=== PATIENT | male | born 1980 | race Caucasian/White ===

== ENCOUNTER 2017-05-06 15:57 | Emergency (ER) ==
[2017-05-06 16:01] VITALS: BP 161/101; TEMP 99.3; BMI 38.0
--- NOTE | 2017-05-06 16:31 | ED.PDOC ---
General ED Provider: Dr. DARRIAN GONZALEZ Chief Complaint: Abscess Stated Complaint: abscess face Time Seen by Physician: 16:00 Mode of Arrival: Walk-In Information Source: Patient Exam Limitations: No limitations Primary Care Provider: HELENE MCNALLY Nursing and Triage Documentation Reviewed and Agree: Yes (see photos) Skin Complaint Exam - Skin/Soft Tissue Complaint/Exam Onset/Duration: 1 week Symptoms Are: Still present Timing: Constant Initial Severity: Mild Current Severity: Mild Character: Reports: Swelling, Raised, Painful Aggravating: Reports: Touch Alleviating: Reports: None Associated Signs and Symptoms: Denies: Fever, Chills, Itching, Drainage, Bruising, Tenderness, Red streaks, Joint swelling Related History: Reports: Similar episode Related Surgical History: Reports: None Recent Exposure to Others w/Similar Symptoms: No Skin Findings: Present: Pustules Differential Diagnoses: Abscess, MRSA Review of Systems - Review Of Systems Constitutional: Reports: No symptoms Eyes: Reports: No symptoms Ears, Nose, Mouth, Throat: Reports: No symptoms Respiratory: Reports: No symptoms Cardiac: Reports: No symptoms GI: Reports: No symptoms : Reports: No symptoms Musculoskeletal: Reports: No symptoms Skin: Reports: Other (abscess see photos) Neurological: Reports: No symptoms Endocrine: Reports: No symptoms Hematologic/Lymphatic: Reports: No symptoms All Other Systems: Reviewed and Negative Past Medical History - Past Medical History Previously Healthy: Yes Endocrine: Reports: None Cardiovascular: Reports: None Respiratory: Reports: None Hematological: Reports: None Gastrointestinal: Reports: None Genitourinary: Reports: None Neuro/Psych: Reports: Anxiety, Depression Musculoskeletal: Reports: None Cancer: Reports: None - Surgical History General Surgical History: Reports: Unknown - Family History Family History: Reports: Unknown - Social History Smoking Status: Current some day smoker Hx Substance Use: Yes ([facility]) Alcohol Screening: None Physical Exam - Physical Exam Appearance: Well-appearing, No pain distress, Well-nourished Eyes: AZAEL, EOMI, Conjunctiva clear ENT: Ears normal, Nose normal, Oropharynx normal Respiratory: Airway patent, Breath sounds clear, Breath sounds equal, Respirations nonlabored Cardiovascular: RRR, Pulses normal, No rub, No murmur GI/: Soft, Nontender, No masses, Bowel sounds normal, No Organomegaly Musculoskeletal: Normal strength, ROM intact, No edema, No calf tenderness Skin: Warm, Dry (abscess 2cm on the left face see photos) Neurological: Sensation intact, Motor intact, Reflexes intact, Cranial nerves intact, Alert, Oriented Psychiatric: Affect appropriate, Mood appropriate Critical Care Note - Critical Care Note Total Time (mins): 0 Course - Course Vital Signs: Temp Pulse Resp BP Pulse Ox 05/06/17 15:59 99.3 F 120 H 16 161/101 H 95 Departure - Departure Time of Disposition: 16:31 (see photos, may was present during discharge inst ) Disposition: HOME SELF-CARE Discharge Problem: Abscess Instructions: Abscess (ED) Condition: Good Pt referred to PMD for follow-up: Yes Additional Instructions: Please call your Family Physician as soon as possible to schedule a follow-up appointment. Allergies/Adverse Reactions: Allergies No Known Allergies Allergy (Verified 01/31/16 19:22) Home Medications: Ambulatory Orders Gabapentin 900 mg PO DAILY 01/29/16 Venlafaxine HCl [Effexor] 150 mg PO DAILY 01/29/16 Disposition Discussed With: Patient
== END 2017-05-06 16:56 | disposition home or self-care (01) ==
LOC: ED 15:57
DX: L02.01 Cutaneous abscess of face (principal); F17.210 Nicotine dependence, cigarettes, uncomplicated
CPT/HCPCS: 99282

== ENCOUNTER 2017-06-07 10:34 | Emergency (ER) ==
[2017-06-07 10:38] VITALS: BP 171/107; TEMP 97.4; BMI 38.6
[2017-06-07 11:02] LABS: BASOPHILS % (AUTO) 0.4 % (0.0-3.0); EOSINOPHILS # (AUTO) 0.2 K/ul (0.0-0.7); EOSINOPHILS % (AUTO) 2.5 % (0.0-7.0); HEMATOCRIT 43.4 % (42.0-52.0); IMMATURE GRANULOCYTE % (AUTO) 0.3 % (0.0-5.0); LYMPHOCYTES # (AUTO) 3.7 K/uL (0.60-3.4); LYMPHOCYTES % (AUTO) 38.2 (10.0-50.0); MEAN CORPUSCULAR HGB CONC 34.6 (31.8-35.4); MEAN CORPUSCULAR VOLUME 83.9 fl (80.0-94.0); MONOCYTES # (AUTO) 0.6 K/uL (0.4-2.0); MONOCYTES % (AUTO) 6.5 (0-10); NEUTROPHILS % (AUTO) 52.1; PLATELET COUNT 310 10^3/uL (140-440); RED BLOOD COUNT 5.17 10^6/ul (4.70-6.10)
[2017-06-07 11:20] LABS: ALBUMIN 3.7 g/dL (3.4-5.0); ALBUMIN/GLOBULIN RATIO 0.95; ANION GAP 14.9; BILIRUBIN,TOTAL 0.22 mg/dL (0.00-1.20); BUN/CREATININE RATIO 11.3; CALCIUM 9.2 mg/dL (8.2-10.2); CREATININE 1.15 mg/dL (0.60-1.10); POTASSIUM 3.9 mmol/L (3.5-5.1); TOTAL PROTEIN 7.6 g/dL (6.4-8.2)
--- NOTE | 2017-06-07 11:30 | CT ---
EXAM: CT Abdomen without contrast. CT Pelvis without contrast. HISTORY: Abdominal pain. Low back pain. Crohn disease. COMPARISON: None available. TECHNIQUE: Multiple axial images of the abdomen and pelvis were obtained without intravenous contras t. Images were reformatted in the coronal plane. FINDINGS: Please note that evaluation of the abdominal and pelvic structures is limited due to lack of intravenous contrast. No acute abnormality identified in the lung bases. Degenerative changes present in the spine. The liver, gallbladder, pancreas, spleen, and adrenal glands demonstrate normal contour. No calcifie d renal stones or hydronephrosis detected. No ureteral or bladder calculi are seen. The bowel is normal in course and caliber without evidence for obstruction or inflammatory process. The appendix is normal. Tiny fat-containing umbilical hernia noted. No free fluid or free air ident ified. IMPRESSION: No acute abnormality within the abdomen or pelvis.
[2017-06-07] MEDS ORDERED: NORCO 10-325 PO STA (11:33)
[2017-06-07 12:19] LABS: ADD URINE MICROSCOPIC NO; BILIRUBIN,URINE Negative (NEGATIVE); KETONES,URINE Negative (NEGATIVE); LEUKOCYTE ESTERASE ,URINE Negative (NEGATIVE); NITRITE,URINE Negative (NEGATIVE); PH,URINE 5.5 (5-9); PROTEIN,URINE Negative (NEGATIVE); URINE, BLOOD Negative (NEGATIVE)
--- NOTE | 2017-06-07 12:29 | CT ---
EXAM: CT lumbar spine without contrast HISTORY: Pain COMPARISON: MRI 05/28/2016 TECHNIQUE: CT lumbar spine performed without intravenous contrast. Coronal and sagittal reformatted images obtained. FINDINGS: Vertebral bodies normal height. No fracture. No subluxation. Mild intervertebral disc s pace narrowing L4-L5 with associated endplate degenerative change. Sacroiliac joints intact. No par avertebral soft tissue abnormality. T12-L1: No central canal or neural foraminal narrowing. L1-L2: No central canal or neural foraminal narrowing. L2-L3: No central canal or neural foraminal narrowing. L3-L4: Posterior disc osteophyte complex and facet arthrosis causing mild central canal and mild alethea ateral neural foraminal narrowing. L4-L5: Right hemilaminectomy. Posterior disc osteophyte complex and facet arthrosis causing mild ce ntral canal and moderate bilateral neural foraminal narrowing. L5-S1: Posterior disc osteophyte complex and facet arthrosis causing mild to moderate bilateral neur al foraminal narrowing. IMPRESSION: 1. No fracture or subluxation. 2. Chronic discogenic degenerative disease and facet arthrosis. Please see segmental analysis, noti ng central canal and neural foraminal narrowing
--- NOTE | 2017-06-07 12:42 | ED.PDOC ---
General ED Provider: Dr. DARRIAN GONZALEZ Chief Complaint: Back Pain Stated Complaint: LOW BACK PAIN Time Seen by Physician: 10:40 (PAIN AFTER LIFTING A CHAIR) Mode of Arrival: Walk-In Information Source: Patient Exam Limitations: No limitations Primary Care Provider: HELENE MCNALLY Nursing and Triage Documentation Reviewed and Agree: Yes Musculoskeletal Complaint Exam - Back Pain Complaint/Exam Mechanism of Injury: Reports: No known trauma Onset/Duration: 1 DAY Symptoms Are: Still present Timing: Constant Episodes Lasting: Hours Initial Severity: Moderate Current Severity: Moderate Location: Reports: Discrete Character: Reports: Spasmodic, Stiffness Aggravating: Reports: Movements, Lifting, Bending, Walking Alleviating: Reports: Rest, Position Associated Signs and Symptoms: Denies: Swelling, Redness, Bruising, Fever, Weakness, Numbness, Tingling, Abdominal pain, Flank pain, Bladder incontinence, Bowel incontinence, Weight loss, Pain with weight bearing Related History: Reports: Similar episode TAD Risk Factors: Reports: None Cauda Equina Risk Factors: Reports: None Epidural Abcess Risk Factors: Reports: None Related Surgical History: Reports: None Focal Tenderness: No Paraspinal Muscle Tenderness: No Paraspinal Muscle Spasm: No Scoliosis: No Lordosis: No Kyphosis: No SLR Test: Right Negative, Left Negative Hip Motion Testing Pain: Right Negative, Left Negative Focal Weakness: Present: None Focal Sensory Loss: Present: None Gait: Present: Normal Differential Diagnoses: Strain, Sprain Review of Systems - Review Of Systems Constitutional: Reports: No symptoms Eyes: Reports: No symptoms Ears, Nose, Mouth, Throat: Reports: No symptoms Respiratory: Reports: No symptoms Cardiac: Reports: No symptoms GI: Reports: Abdominal pain : Reports: No symptoms Musculoskeletal: Reports: Back pain Skin: Reports: No symptoms Neurological: Reports: No symptoms Endocrine: Reports: No symptoms Hematologic/Lymphatic: Reports: No symptoms All Other Systems: Reviewed and Negative Past Medical History - Past Medical History Previously Healthy: Yes Endocrine: Reports: None Cardiovascular: Reports: None Respiratory: Reports: None Hematological: Reports: None Gastrointestinal: Reports: None Genitourinary: Reports: None Neuro/Psych: Reports: Anxiety, Depression Musculoskeletal: Reports: None Cancer: Reports: None - Surgical History General Surgical History: Reports: Unknown - Family History Family History: Reports: Unknown - Social History Smoking Status: Current some day smoker Hx Substance Use: Yes ([place]) Alcohol Screening: None Physical Exam - Physical Exam Appearance: Well-appearing, No pain distress, Well-nourished Eyes: AZAEL, EOMI, Conjunctiva clear ENT: Ears normal, Nose normal, Oropharynx normal Respiratory: Airway patent, Breath sounds clear, Breath sounds equal, Respirations nonlabored Cardiovascular: RRR, Pulses normal, No rub, No murmur GI/: Soft, Nontender, No masses, Bowel sounds normal, No Organomegaly Musculoskeletal: Normal strength, ROM intact, No edema, No calf tenderness Skin: Warm, Dry, Normal color Neurological: Sensation intact, Motor intact, Reflexes intact, Cranial nerves intact, Alert, Oriented Psychiatric: Affect appropriate, Mood appropriate Critical Care Note - Critical Care Note Total Time (mins): 0 Course - Course Hematology/Chemistry: 06/07/17 10:55 06/07/17 10:55 Orders, Labs, Meds: Lab Review 06/07/17 06/07/17 12 10:55 10:55 11:24 WBC 9.60 RBC 5.17 Hgb 15.0 Hct 43.4 MCV 83.9 MCH 29.0 MCHC 34.6 RDW Coeff of Teresa 13.3 Plt Count 310 Immature Gran % (Auto) 0.3 Neut % (Auto) 52.1 Lymph % (Auto) 38.2 Casey % (Auto) 6.5 Eos % (Auto) 2.5 Baso % (Auto) 0.4 Immature Gran # (Auto) 0.0 Neut # 5.0 Lymph # 3.7 H Casey # 0.6 Eos # 0.2 Baso # 0.0 Sodium 139 Potassium 3.9 Chloride 106 Carbon Dioxide 22 Anion Gap 14.9 BUN 13 Creatinine 1.15 H Estimated GFR (MDRD) 72.00 BUN/Creatinine Ratio 11.30 Glucose 84 Calcium 9.2 Total Bilirubin 0.22 AST 21 ALT 35 Alkaline Phosphatase 91 Total Protein 7.6 Albumin 3.7 Globulin 3.9 Albumin/Globulin Ratio 0.95 Amylase 31 Lipase 23 Urine Color Yellow Urine Clarity Clear Urine pH 5.5 Ur Specific [place] <=1.005 Urine Protein Negative Urine Glucose (UA) Negative Urine Ketones Negative Urine Blood Negative Urine Nitrite Negative Urine Bilirubin Negative Urine Urobilinogen 0.2 Ur Leukocyte Esterase Negative Orders Category Date Time Status AMYLASE Stat LAB 06/07/17 10:55 Completed CBC W/ AUTO DIFF Stat LAB 06/07/17 10:55 Completed COMPREHENSIVE METABOLIC PANEL Stat LAB 06/07/17 10:55 Completed LIPASE Stat LAB 06/07/17 10:55 Completed URINALYSIS C & S IF INDICATED Stat LAB 06/07/17 11:24 Completed Hydrocodone Bit/Acetaminophen [[place] 10-325] MEDS 06/07/17 11:33 Discontinued 1 tab PO ONCE STA CT ABDOMEN/PELVIS WO CONTRAST Stat RADS 06/07/17 10:[address] LUMBAR SPINE W/O CONTRAST Stat RADS 06/07/17 11:34 Completed Medications Discontinued Medications Generic Name Dose Route Start Last Admin Trade Name Dustin PRN Reason Stop Dose Admin Acetaminophen/Hydrocodone Bitart 1 tab 06/07/17 11:33 06/07/17 11:46 [place] 10-325 PO 06/07/17 11:34 1 tab ONCE STA Administration Vital Signs: Temp Pulse Resp BP Pulse Ox 06/07/17 10:34 97.4 F L 98 H 18 171/107 H 96 Departure - Departure Time of Disposition: 12:41 (DISCHARGE INSTRUCTION GIVEN WITH CHRIS AT BEDSIDE ) Disposition: HOME SELF-CARE Discharge Problem: Low back pain Qualifiers: Chronicity: unspecified Back pain laterality: unspecified Sciatica presence: without sciatica Qualified Code(s): M54.5 - Low back pain Instructions: Flank Pain (ED), Chronic Back Pain (ED), Acute Low Back Pain (ED) Condition: Good Pt referred to PMD for follow-up: Yes Additional Instructions: Please call your Family Physician as soon as possible to schedule a follow-up appointment. Prescriptions: Hydrocodone/Acetaminophen [[place] 10-325 Tablet] 1 each PO Q8HR #10 tablet Allergies/Adverse Reactions: Allergies No Known Allergies Allergy (Verified 06/07/17 10:38) Home Medications: Ambulatory Orders Hydrocodone/Acetaminophen [[place] 10-325 Tablet] 1 each PO Q8HR #10 tablet
== END 2017-06-07 12:48 | disposition home or self-care (01) ==
LOC: ED 10:34
DX: M54.5 Low back pain (principal); X50.0XXA Overexertion from strenuous movement or load, initial encounter; F17.210 Nicotine dependence, cigarettes, uncomplicated
CPT/HCPCS: 36415; 80053; 81001; 82150; 83690; 85025; 99283

== ENCOUNTER 2017-06-17 15:49 | Emergency (ER) ==
[2017-06-17 15:50] VITALS: BMI 38.6
[2017-06-17 16:03] VITALS: BP 142/88; TEMP 99.8
--- NOTE | 2017-06-17 16:11 | ED.PDOC ---
General ED Provider: Dr. EMIR GARCÍA-ER Chief Complaint: Back Pain Stated Complaint: i ran out of my percocet--will see me doc in 2 days Time Seen by Physician: 16:09 Mode of Arrival: Walk-In Information Source: Patient Exam Limitations: No limitations Primary Care Provider: HELENE MCNALLY Nursing and Triage Documentation Reviewed and Agree: Yes Reviewed sepsis parameters & appropriate labs ordered?: Yes System Inflammatory Response Syndrome: Not Applicable Sepsis Protocol: For patient's 13 years and over: Temp is 96.8 and below OR 101 and greater Pulse >90 BPM Resp >20/minute Acutely Altered Mental Status Are patient's symptoms suggestive of a new infection, such as: -Pneumonia -Skin, Soft Tissue -Endocarditis -UTI -Bone, Joint Infection -Implantable Device -Acute Abdominal Infection -Wound Infection -Meningitis -Blood Stream Catheter Infection -Unknown Musculoskeletal Complaint Exam - Back Pain Complaint/Exam Mechanism of Injury: Reports: No known trauma Onset/Duration: several days Symptoms Are: Still present Timing: Constant Initial Severity: Mild Current Severity: Moderate Location: Reports: Discrete Character: Reports: Dull, Aching, Spasmodic, Stiffness Aggravating: Reports: Movements, Lifting, Bending, Walking Alleviating: Reports: None Associated Signs and Symptoms: Denies: Swelling, Redness, Bruising, Fever, Weakness, Numbness, Tingling, Abdominal pain, Flank pain, Bladder incontinence, Bowel incontinence, Weight loss, Pain with weight bearing Related History: Reports: Previous back injury Cauda Equina Risk Factors: Reports: None Epidural Abcess Risk Factors: Reports: None Related Surgical History: Reports: Back Surgery, Fusion Focal Tenderness: Yes Paraspinal Muscle Tenderness: Yes Paraspinal Muscle Spasm: No Scoliosis: No Lordosis: No Kyphosis: No SLR Test: Right Negative, Left Negative Hip Motion Testing Pain: Right Negative, Left Negative Focal Weakness: Present: None Focal Sensory Loss: Present: None Gait: Present: Abnormal Differential Diagnoses: Herniated Disk, Strain, Sprain Review of Systems - Review Of Systems Constitutional: Reports: No symptoms Eyes: Reports: No symptoms Ears, Nose, Mouth, Throat: Reports: No symptoms Respiratory: Reports: No symptoms Cardiac: Reports: No symptoms GI: Reports: No symptoms : Reports: No symptoms Musculoskeletal: Reports: Back pain, Muscle pain Skin: Reports: No symptoms Neurological: Reports: No symptoms Endocrine: Reports: No symptoms Hematologic/Lymphatic: Reports: No symptoms All Other Systems: Reviewed and Negative Past Medical History - Past Medical History Previously Healthy: Yes Endocrine: Reports: None Cardiovascular: Reports: None Respiratory: Reports: None Hematological: Reports: None Gastrointestinal: Reports: None Genitourinary: Reports: None Neuro/Psych: Reports: Anxiety, Depression Musculoskeletal: Reports: None Cancer: Reports: None - Surgical History General Surgical History: Reports: Unknown - Family History Family History: Reports: Unknown - Social History Smoking Status: Current some day smoker Hx Substance Use: Yes ([facility]) Alcohol Screening: None Lives: With family Physical Exam - Physical Exam Appearance: Well-appearing, No pain distress, Well-nourished Pain Distress: Moderate Eyes: AZAEL, EOMI, Conjunctiva clear ENT: Ears normal, Nose normal, Oropharynx normal Neck: Supple Respiratory: Airway patent, Breath sounds clear, Breath sounds equal, Respirations nonlabored Cardiovascular: RRR, Pulses normal, No rub, No murmur GI/: Soft Musculoskeletal: Limited ROM Skin: Warm, Dry, Normal color Neurological: Sensation intact, Motor intact, Reflexes intact, Cranial nerves intact, Alert, Oriented Psychiatric: Affect appropriate, Mood appropriate Critical Care Note - Critical Care Note Total Time (mins): 0 Course - Course Vital Signs: Temp Pulse Resp BP Pulse Ox 06/17/17 15:50 99.8 F H 107 H 20 142/88 H 95 Departure - Departure Time of Disposition: 16:11 Disposition: HOME SELF-CARE Discharge Problem: Backache Instructions: Low Back Strain (ED) Condition: Good Pt referred to PMD for follow-up: Yes Additional Instructions: percocet 7.5 q 4hrs prn pain #12--keep f/u with surgeon Allergies/Adverse Reactions: Allergies No Known Allergies Allergy (Verified 06/07/17 10:38) Home Medications: Ambulatory Orders Diazepam [Valium] 5 mg PO Q8HR PRN 06/17/17 Oxycodone HCl/Acetaminophen [Oxycodon-Acetaminophen 7.5-325] 1 - 2 each PO Q4HR PRN 06/17/17 Disposition Discussed With: Patient
== END 2017-06-17 16:21 | disposition home or self-care (01) ==
LOC: ED 15:49
DX: M54.9 Dorsalgia, unspecified (principal); F17.210 Nicotine dependence, cigarettes, uncomplicated
CPT/HCPCS: 99283

== ENCOUNTER 2017-12-10 07:09 | Emergency (ER) ==
[2017-12-10 07:15] VITALS: BP 140/87; TEMP 97.9; BMI 33.2
--- NOTE | 2017-12-10 07:52 | ED.PDOC ---
General ED Provider: Dr. EMIR GREEN Chief Complaint: Eye Problem Stated Complaint: Lt Eye Pain, drainage. Awakened yesterday with swelling of lt eye and discharge(yellow). Increased mattering of the eyelids, swelling and discomfort this morning. Is supposed to work this morning. 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[employer]) Time Seen by Physician: 07:40 Mode of Arrival: Walk-In Information Source: Patient Exam Limitations: No limitations Primary Care Provider: HELENE IL Nursing and Triage Documentation Reviewed and Agree: Yes Reviewed sepsis parameters & appropriate labs ordered?: Yes System Inflammatory Response Syndrome: Not Applicable Sepsis Protocol: For patient's 13 years and over: Temp is 96.8 and below OR 101 and greater Pulse >90 BPM Resp >20/minute Acutely Altered Mental Status Are patient's symptoms suggestive of a new infection, such as: -Pneumonia -Skin, Soft Tissue -Endocarditis -UTI -Bone, Joint Infection -Implantable Device -Acute Abdominal Infection -Wound Infection -Meningitis -Blood Stream Catheter Infection -Unknown EENT Complaint Exam - Eye Complaint/Exam Onset/Duration: 12/09/2017 Symptoms Are: Still present Timing: Constant Initial Severity: Moderate Current Severity: Severe Location: Left Character: Reports: Dull Aggravating: Reports: Light Alleviating: Reports: None Associated Signs and Symptoms: Reports: Photophobia, Purulent drainage, Swelling. Denies: Fever Related History: Denies: Similar episode Eye Surgical History: Reports: None Penetrating Injury Risk Factors: None Globe Rupture Risk Factors: None Acute Glaucoma Risk Factors: None Optic Artery Occlusion Risk Factors: None Extraocular Movement: Normal Orbit Findings: Normal Globe Findings: Intact Lid Findings: Erythema Conjunctival Findings: Red Fundi: Normal Review of Systems - Review Of Systems Constitutional: Reports: No symptoms Eyes: Reports: No symptoms, Foreign body sensation, Inflammation, Photophobia Ears, Nose, Mouth, Throat: Reports: No symptoms Respiratory: Reports: No symptoms Cardiac: Reports: No symptoms GI: Reports: No symptoms : Reports: No symptoms Musculoskeletal: Reports: No symptoms Skin: Reports: No symptoms Neurological: Reports: No symptoms Endocrine: Reports: No symptoms Hematologic/Lymphatic: Reports: No symptoms All Other Systems: Reviewed and Negative Past Medical History - Past Medical History Previously Healthy: Yes Endocrine: Reports: None Cardiovascular: Reports: None Respiratory: Reports: None Hematological: Reports: None Gastrointestinal: Reports: None Genitourinary: Reports: None Neuro/Psych: Reports: Anxiety, Depression Musculoskeletal: Reports: None, Back Pain Cancer: Reports: None - Surgical History General Surgical History: Reports: Unknown - Family History Family History: Reports: Unknown - Social History Smoking Status: Current some day smoker Hx Substance Use: No Alcohol Screening: None - Immunizations Tetanus Shot up to Date: Yes Physical Exam - Physical Exam Appearance: Well-appearing Ill-appearing: None Pain Distress: Mild Eyes: AZAEL, EOMI, Conjunctiva inflammed (Prulent discharge. ;No ulcers noted to exam) ENT: Ears normal, Nose normal, Oropharynx normal Neck: Supple Respiratory: Airway patent, Breath sounds clear, Breath sounds equal, Respirations nonlabored Cardiovascular: RRR, Pulses normal, No rub, No murmur GI/: Soft, Nontender, No masses, Bowel sounds normal, No Organomegaly Musculoskeletal: Normal strength, ROM intact, No edema, No calf tenderness Skin: Warm, Dry, Normal color Neurological: Sensation intact Psychiatric: Affect appropriate Critical Care Note - Critical Care Note Total Time (mins): 0 Course - Course Vital Signs: Temp Pulse Resp BP Pulse Ox 12/10/17 07:11 97.9 F 80 16 140/87 95 Departure - Departure Time of Disposition: 08:30 Disposition: HOME SELF-CARE Discharge Problem: Conjunctivitis Instructions: Conjunctivitis (ED) Condition: Good Pt referred to PMD for follow-up: Yes (Dr Callahan 1 wk) IPMP verified?: No Additional Instructions: Use Tobramycin OP 2 drops lt eye as directed every 1-2 hrs then after 24 hours 2 drops lt eye q 2-4 hrs or 4 times daily for 5 days Keep drainage clear of eye as directed. Follow up [employer] in 2-4 days if no improvement or return to ER if worsens Good hand hygeine Allergies/Adverse Reactions: Allergies No Known Allergies Allergy (Verified 12/10/17 07:10) Home Medications: Ambulatory Orders 1 [No Reported Medications] 12/10/17 Disposition Discussed With: Patient
[2017-12-10] MEDS ORDERED: FLUORETS OP STA (07:58)
[2017-12-10] MEDS ORDERED: TOBREX 0.3% OP STA (08:02)
[2017-12-10] MEDS ORDERED: EYE-STREAM OP STA (08:35)
== END 2017-12-10 08:39 | disposition home or self-care (01) ==
LOC: ED 07:09
DX: H10.9 Unspecified conjunctivitis (principal); F17.210 Nicotine dependence, cigarettes, uncomplicated
CPT/HCPCS: 87070; 87186; 99282

== ENCOUNTER 2018-12-02 12:37 | Outpatient (CLI) | END 2018-12-02 12:38 | disposition home or self-care (01) | LOC: RHC-LAB 12:37 | PROVIDERS: ATTEND Nurse Practitioner Family | DX: J02.9 Acute pharyngitis, unspecified (principal) | CPT/HCPCS: 87651 ==